=== PATIENT | female | born 1930 | race Caucasian/White ===

== ENCOUNTER → 2016-10-08 | Outpatient (CLI) | payer OTHER ==
[~2016-10-08] MED LIST: ACTOS; ACTOS PO; ALENDRONATE SOD70 MG PO; AMIODARONE PO; ANUSOL-HC25 MG/SUPP RC; ASPIRIN; ASPIRIN81 MG PO; BUMEX1 MG PO; CALCIUM 500 + D1 TAB PO; CENTRUM PO; CIPRO PO; CLARITIN10 M1 PO; CLARITIN10 M3 PO; COLACE PO; COREG3.125 MG PO; COZAAR; COZAAR100 MG PO; DILANTIN; FOLIC ACID; FOLIC ACID PO; FOLIC ACID1 MG PO; FORTICAL; FOSAMAX; GLUCOTROL; GLUCOTROL PO; HCTZ PO; KCL PO; KEFLEX500 M1 PO; LIPITOR80 MG PO; MACRODANTIN PO; METRONIDAZOLE PO; MILK OF MAGNESIA PO; MINERAL OIL PO; NORCO 10-325 TA1 TAB PO; NORVASC10 MG PO; NORVASC2.5 MG PO; ONE DAILY1 EACH PO; ONE DAILY1 TA1 PO; OXYCONTIN10 MG; OXYCONTIN10 MG PO; PLAVIX PO; PLAVIX300 MG PO; POLYTRIM O10 ML OPTH; PRAVACHOL80 MG PO; PROTONIX PO; RA COL RITE PO; RITE-AID PHARMACY; SOD BICARBONATE; SYNTHROID; TOBRADEX EYE DRO5 ML OP; TOPROL XL; TOPROL XL100 MG PO; TRIAMCINOLONE AC1 GM TOP; TYLENOL325 M1 PO; VITAMIN C PO; VITAMIN C500 M1; VITAMIN C500 M1 PO; VITAMIN D1000 UNIT PO; ZYLOPRIM100 MG PO; ZYRTEC10 M2; ZYRTEC10 M5 PO
[2016-10-08 08:33] LABS: BASOPHIL% 0.4 % (0-2.5); EOSINOPHIL# 0.1 X10e3 (0-0.7); EOSINOPHIL% 0.7 % (0.0-7.0); HEMATOCRIT 37.7 % (35.0-45.0); HEMOGLOBIN 12.7 gm/dL (12.0-16.0); LYMPHOCYTE# 0.8 X10e3 (1.0-3.5); LYMPHOCYTE% 9.6 % (17.0-45.0); MEAN CELL VOLUME 87.8 FL (83-96); MEAN CORPUSCULAR HEMOGLOBIN 29.6 PG (28-34); MEAN CORPUSCULAR HGB CONC 33.7 g/dL (30-36); MEAN PLATELET VOLUME 8.7 FL (6.5-11.5); MONOCYTE# 0.9 X10e3 (0-1.0); MONOCYTE% 10.4 % (3.0-12.0); NEUTROPHIL# 6.9 X10e3 (1.5-7.1); NEUTROPHIL% 78.9 % (40-75); PLATELET COUNT 192 X10e3 (140-420); RED CELL DISTRIBUTION WIDTH 17.1 % (11.0-15.5); WHITE BLOOD COUNT 8.8 X10e3 (4.0-10.5)
[2016-10-08 08:46] LABS: DIFF IND NO
[2016-10-08 08:58] LABS: ALBUMIN SERUM 3.7 g/dL (3.5-5.0); BILIRUBIN,TOTAL 0.8 mg/dL (0.2-2.0); BUN/CREATININE RATIO 35.71; CALCIUM SERUM 9.5 mg/dL (8.4-10.2); CREATININE SERUM 1.4 mg/dL (0.6-1.4); GLOM FILT RATE Estimated 33.7 mL/min (>60); POTASSIUM 4.1 mmol/L (3.5-5.1); PROTEIN TOTAL SERUM 7.4 g/dL (6.0-8.3)
[2016-10-08 11:28] LABS: URINE APPEARANCE CLEAR; URINE BILIRUBIN NEG (NEG); URINE BLOOD NEG (NEG); URINE COLOR YELLOW; URINE GLUCOSE NEG (NORM); URINE KETONE NEG (NEG); URINE LEUKOCYTE ESTERASE NEG (NEG); URINE NITRATE NEG (NEG); URINE PH 5.5 (5-8); URINE PROTEIN NEG (NEG); URINE UROBILINOGEN 0.2 MG/DL (NORM)
[2016-10-08 11:29] LABS: MICRO INDICATED? NO
[2016-10-08 15:18] LABS: CREATININE,RANDOM URINE 50 mg/dL; TOTAL PROTEIN,RANDOM URINE <10 mg/dl (<10)
== END | disposition home or self-care (01) ==
LOC: SLAB 08:02
PROVIDERS: Internal Medicine Nephrology
DX: N18.2 Chronic kidney disease, stage 2 (mild) (principal)
CPT/HCPCS: 36415; 80053; 81003; 82570; 84156; 85025